=== PATIENT | male | born 2000 | race Two or more races ===

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

== ENCOUNTER 2024-04-22 09:15 | Outpatient (CLI) | payer OTHER | END 2024-04-22 09:22 | disposition home or self-care (01) | LOC: SONOGRAMA 09:15 | PROVIDERS: ATTEND Pathology Anatomic Pathology & Clinical Pathology | DX: D34 Benign neoplasm of thyroid gland (principal); E07.89 Other specified disorders of thyroid; E04.2 Nontoxic multinodular goiter ==